=== PATIENT | male | born 1975 | race Caucasian/White ===

== ENCOUNTER → 2016-07-11 | Outpatient (CLI) | payer OTHER | LOC: KOH-I 15:43 | DX: M25.552 Pain in left hip (principal) | CPT/HCPCS: 73080 ==

== ENCOUNTER → 2016-10-11 | Outpatient (CLI) | payer OTHER | LOC: KOH-I 14:19 | DX: S22.39XA Fracture of one rib, unspecified side, initial encounter for closed fracture (principal) | CPT/HCPCS: 71111 ==

== ENCOUNTER → 2020-09-02 | Day surgery (SDC) | payer OTHER ==
[~2020-09-02] MED LIST: ADMELOG100 UNIT/1 SC; CRESTOR40 MG PO; GABAPENTIN800 MG PO; LANTUS100 UNIT/1 SQ; PREDNISONE10 MG PO; TRAZODONE HCL100 MG PO
== END | disposition home or self-care (01) ==
LOC: OR 07:32
DX: D12.0 Benign neoplasm of cecum (principal); K64.1 Second degree hemorrhoids; K52.9 Noninfective gastroenteritis and colitis, unspecified; K29.50 Unspecified chronic gastritis without bleeding; K76.6 Portal hypertension; K31.89 Other diseases of stomach and duodenum; D50.0 Iron deficiency anemia secondary to blood loss (chronic); E11.9 Type 2 diabetes mellitus without complications; E78.5 Hyperlipidemia, unspecified; F17.210 Nicotine dependence, cigarettes, uncomplicated; Z88.2 Allergy status to sulfonamides; Z88.1 Allergy status to other antibiotic agents; Z88.8 Allergy status to other drugs, medicaments and biological substances; Z79.4 Long term (current) use of insulin; Z79.899 Other long term (current) drug therapy
CPT/HCPCS: 82962; J2250; J2704; J7040